=== PATIENT | female | born 1985 ===

== ENCOUNTER 2017-12-30 17:02 | Emergency (ER) | payer OTHER ==
[2017-12-30 17:07] VITALS: BP 124/83; PULSE 69; RESP 16; TEMP 98.3; O2SAT 99
--- NOTE | 2017-12-30 17:32 | C.PDOC ---
History Of Present Illness 32 yo female come in for evaluation of right forearm painful swelling gradually developed for past week. Pt admits, "initially noted some pimple that was itchy " . Otherwise, pt denies fever, chills, myalagia, arthralgia, throat pain or swelling, CP, SOB, wheezing, cough, denies weakness, sensory or vascular deficits to Right arm. Ambulate to Ed for evaluation, not in any apparent distress. Time Seen by Provider: 12/30/17 17:05 Chief Complaint (Nursing): Abnormal Skin Integrity History Per: Patient Past Medical History Reviewed: Historical Data, Nursing Documentation, Vital Signs Vital Signs: Last Vital Signs Temp 98.3 F 12/30/17 17:05 Pulse 69 12/30/17 17:05 Resp 16 12/30/17 17:05 BP 124/83 12/30/17 17:05 Pulse Ox 99 12/30/17 17:32 - Medical History PMH: Bronchitis, Malignancy (Cervical Ca) Family History: States: Unknown Family Hx - Social History Hx Tobacco Use: No Hx Alcohol Use: No Hx Substance Use: No - Immunization History Hx Tetanus Toxoid Vaccination: No Hx Influenza Vaccination: No Hx Pneumococcal Vaccination: No Review Of Systems Except As Marked, All Systems Reviewed And Found Negative. Constitutional: Negative for: Fever, Chills ENT: Negative for: Ear Discharge, Nose Discharge, Throat Pain, Throat Swelling Cardiovascular: Negative for: Chest Pain Respiratory: Negative for: Cough, Shortness of Breath, Wheezing Gastrointestinal: Negative for: Nausea, Vomiting, Abdominal Pain, Diarrhea Genitourinary: Negative for: Dysuria Musculoskeletal: Negative for: Neck Pain, Arm Pain, Back Pain Skin: Positive for: Lesions Neurological: Negative for: Weakness, Numbness Physical Exam - Physical Exam Appears: Well, Non-toxic, No Acute Distress Skin: Normal Color, Warm Head: Normacephalic Eye(s): bilateral: PERRL Nose: No Flaring, No Discharge Oral Mucosa: Moist Throat: No Drooling Neck: Trachea Midline, Supple Lymphatic: No Adenopathy Chest: Symmetrical Cardiovascular: Rhythm Regular, No Murmur, No JVD Respiratory: No Decreased Breath Sounds, No Accessory Muscle Use, No Stridor, No Wheezing Gastrointestinal/Abdominal: Soft, No Tenderness, No Distention, No Guarding Extremity: Normal ROM, No Deformity, No Swelling, Other (Right forearm volar aspect small tender mass with cetral induration, small pustula with purulent contect, mild surrounded erythema. no proximal streaking, no flactulance.) ED Course And Treatment O2 Sat by Pulse Oximetry: 99 Pulse Ox Interpretation: Normal Progress Note: On re-evlauation, pt is afebrile, hemodynamicaly stable. Tolerate Po well in Ed. PulseOx 99% RA. Neck: Supple, (-)meningeal sign. ENT : no acute findings. Lungs: CTA B/L, BS equal B/L. RUE: exam c/w small furuncle , no flactualnce, no cellulitis. Pt advised and ref. to f/u with PMD in 2-3 days for re-eavl. return if any new changes. Disposition Counseled Patient/Family Regarding: Diagnosis, Need For Followup, Rx Given - Disposition Referrals: [facility] [Outside] Disposition: HOME/ ROUTINE Disposition Time: 17:40 Condition: STABLE Additional Instructions: Warm salty water compresses to area take medication as prescribed Follow up with PMD in 2 days for re-evaluation. return if any worsening or new changes. Prescriptions: Amoxicillin/Clavulanate [Augmentin 875 MG-125 MG] 1 tab PO BID #14 tab Prednisone [Deltasone] 20 mg PO DAILY #3 tablet Instructions: Boil Forms: [email or web address] ([place]) - Clinical Impression Clinical Impression: Abscess
[2017-12-30] MEDS ORDERED: Amoxicillin-Clav 875-125 mg Tab PO STA (17:39)
[2017-12-30] MEDS ORDERED: Amoxicillin-Clav 875-125 mg Tab PO ONE (17:49)
== END 2017-12-30 17:57 | disposition home or self-care (01) ==
LOC: C.ER 17:02
DX: L02.413 Cutaneous abscess of right upper limb (principal)